=== PATIENT | male | born 1945 | race African-American/Black ===

== ENCOUNTER 2018-06-12 12:51 | Emergency (ER) | payer MEDICARE, MEDICAID ==
[~2018-06-12] VITALS: Ht 180.3 cm; Wt 83.0 kg
[~2018-06-12 12:51] MED LIST: ACET-3161 PO; AMLO5TAB88 PO; COZAAR; LOSA100T14 PO; PACERONE; PRAV20TA57 PO; SPIR25TA6 PO; SPIRONLACTONE
[2018-06-12 17:07] VITALS: BP 144/78
== END 2018-06-12 17:32 | disposition home or self-care (01) ==
LOC: ER 14:21
DX: S52.021A Displaced fracture of olecranon process without intraarticular extension of right ulna, initial encounter for closed fracture (principal); I10 Essential (primary) hypertension; F17.200 Nicotine dependence, unspecified, uncomplicated; W10.8XXA Fall (on) (from) other stairs and steps, initial encounter; Y93.89 Activity, other specified; Y92.89 Other specified places as the place of occurrence of the external cause
CPT/HCPCS: 29105; 73080; 99283; A4565